=== PATIENT | female | born 1985 | race Caucasian/White ===

== ENCOUNTER 2019-04-08 08:39 | Emergency (ER) | payer SELFPAY ==
[~2019-04-08] VITALS: Ht 152.4 cm; Wt 59.7 kg
[~2019-04-08 08:39] MED LIST: LIDOcaine 1% W/epiNEPHrine 1:100,000 20ml vial ONE
[2019-04-08 08:47] VITALS: BP 124/75
[2019-04-08] MEDS ORDERED: SULF1TAB49 PO (09:34)
[2019-04-08] MEDS ORDERED: TETanus/Pertussis (Acell)/Diphther VAC/PF (Tdap-Adult) 0.5ml syringe IMVAC ONE (09:35)
== END 2019-04-08 11:02 | disposition home or self-care (01) ==
LOC: ER 08:39
DX: L02.31 Cutaneous abscess of buttock (principal); Z98.890 Other specified postprocedural states
CPT/HCPCS: 10060; 90471; 90715; 99283

== ENCOUNTER 2019-04-16 03:56 | Emergency (ER) | payer OTHER ==
[~2019-04-16] VITALS: Ht 152.4 cm; Wt 61.4 kg
[~2019-04-16 03:56] MED LIST changes: -LIDOcaine 1% W/epiNEPHrine 1:100,000 20ml vial ONE; +SULF1TAB49 PO
[2019-04-16] MEDS ORDERED: famotidine 10mg tablet PO ONE (04:25)
[2019-04-16] MEDS ORDERED: famotidine 20mg tablet PO ONE (04:25)
[2019-04-16] MEDS ORDERED: dexamethasone 4mg tablet PO ONE (04:25)
[2019-04-16] MEDS ORDERED: PRED20TA PO (04:26)
[2019-04-16 04:32] VITALS: BP 114/72
== END 2019-04-16 04:34 | disposition home or self-care (01) ==
LOC: ER 03:57
DX: L50.0 Allergic urticaria (principal); T36.8X5A Adverse effect of other systemic antibiotics, initial encounter; Z98.890 Other specified postprocedural states; Z88.8 Allergy status to other drugs, medicaments and biological substances; Z79.899 Other long term (current) drug therapy; Z88.2 Allergy status to sulfonamides; Y92.89 Other specified places as the place of occurrence of the external cause
CPT/HCPCS: 99283

== ENCOUNTER 2023-07-28 03:08 | Emergency (ER) | payer MEDICAID ==
[~2023-07-28] VITALS: Ht 152.4 cm; Wt 79.5 kg
[2023-07-28 03:19] VITALS: BP 126/86; PULSE 93; RESP 17; TEMP 97.6; O2SAT 99
== END 2023-07-28 04:54 | disposition home or self-care (01) ==
LOC: ER 03:09
DX: J06.9 Acute upper respiratory infection, unspecified (principal)
CPT/HCPCS: 99281

== ENCOUNTER 2024-03-28 13:21 | Emergency (ER) | payer MEDICAID ==
[~2024-03-28] VITALS: Ht 172.7 cm; Wt 82.5 kg
[2024-03-28 15:42] LABS: STREP A SCREEN NEGATIVE (Neg)
[2024-03-28 17:00] VITALS: BP 140/83; PULSE 86; RESP 16; TEMP 97.9; O2SAT 97
== END 2024-03-28 17:01 | disposition home or self-care (01) ==
LOC: ER 13:22
DX: J22 Unspecified acute lower respiratory infection (principal); Z88.2 Allergy status to sulfonamides; Z98.890 Other specified postprocedural states; Z20.822 Contact with and (suspected) exposure to COVID-19
CPT/HCPCS: 36415; 87081; 87502; 87503; 87811; 87880; 99283